=== PATIENT | male | born 1960 | race Caucasian/White ===

== ENCOUNTER 2021-09-30 17:03 | Inpatient (IN) | payer OTHER, MEDICAID ==
[~2021-09-30] VITALS: Ht 175.3 cm; Wt 62.6 kg
--- NOTE | 2021-09-30 17:05 | NUR ---
Patient to ER bed 06 to gown for evaluation. Side rails up.
[2021-09-30 17:06] VITALS: BP_SYST 117
--- NOTE | 2021-09-30 17:06 | NUR ---
Pt CASSIAA from home, family stated that the pt has had general weakness for the past couple of days. PT is A&O x 3, non-ambulatory, and incontinent. Pt has a reported history of parkinsons, dementia, and IBS. Pt is connected to the compliance monitor and safety precautions are in place.
--- NOTE | 2021-09-30 17:14 | NUR ---
Dr. Causey is at bedside with patient for evaluation.
--- NOTE | 2021-09-30 17:24 | NUR ---
urine sent to lab for analysis at 17:20.
--- NOTE | 2021-09-30 17:38 | NUR ---
LAB AT THE BEDSIDE FOR BLOOD DRAW
[2021-09-30 18:12] LABS: ANION GAP 3 (5-15); CALCIUM 7.6 mg/dL (8.4-11.0); CHLORIDE 104 mmol/L (98-107); CREATININE 0.92 mg/dL (0.55-1.30); GLUCOSE 85 mg/dL (70-99); POTASSIUM 4.6 mmol/L (3.5-5.1); SODIUM SERUM 133 mmol/L (136-145); UREA NITROGEN, BLOOD 19 mg/dL (8-21)
[2021-09-30 18:13] LABS: BASOPHILS % (AUTO) 0.6 % (0.0-2.0); EOSINOPHILS # (AUTO) 0.2 K/uL (0.0-0.4); EOSINOPHILS % (AUTO) 3.5 % (0.0-4.0); HEMATOCRIT 35.3 % (36-54); HEMOGLOBIN 12.3 g/dL (14.0-18.0); LYMPHOCYTES # (AUTO) 1.2 K/uL (1.0-5.5); MEAN CORPUSCULAR HEMOGLOBIN 32 pg (27-31); MEAN CORPUSCULAR HGB CONC 35 % (32-36); MEAN CORPUSCULAR VOLUME 90 fL (79.0-98.0); MONOCYTES # (AUTO) 0.4 K/uL (0.0-1.0); MONOCYTES % (AUTO) 9.2 % (1.7-9.3); NEUTROPHILS # (AUTO) 2.8 K/uL (1.8-7.7); NEUTROPHILS % (AUTO) 60.7 % (40.0-70.0); PLATELET COUNT (AUTO) 149 K/uL (130-430); RED BLOOD CELL COUNT(AUTO) 3.92 MIL/uL (4.2-6.2); WHITE BLOOD COUNT (AUTO) 4.6 K/uL (4.8-10.8)
[2021-09-30 18:20] LABS: ALANINE AMINOTRANSFERASE 10 U/L (12-78); ALBUMIN 3.5 g/dL (3.4-4.8); ASPARTATE AMINOTRANSFERASE 14 U/L (10-37); PHOSPHORUS 4.1 mg/dL (2.7-4.5); TOTAL BILIRUBIN 0.4 mg/dL (0.0-1.0)
[2021-09-30 18:25] LABS: GFR AFRICAN AMERICAN 107 mL/min (>90)
--- NOTE | 2021-09-30 19:22 | NUR ---
Report given to Amanda RODRIGUEZ to assume care.
--- NOTE | 2021-09-30 19:25 | NUR ---
RECIEVED REPORT FROM [facility] FOR CONTINUATION OF CARE, PT IN BED HIGH TELLEZ'S POSITION. NO ACUTE DITRESS. PT CONCERNED ABOUT HAVING URINARY CATHETER INSERTED. REASSURED PT THAT HE MAY NOT REQUIRE CATHETER INSERTION. PENDING CT SCAN. WILL MONITOR NEEDED
[2021-09-30] MEDS ORDERED: LORazepam 2 MG/ML VIAL IVP ONE (20:00)
--- NOTE | 2021-09-30 20:06 | NUR ---
PT PENDING ADMISSION, REDNESS WITH CIRCULAR OPEN SKIN NOTED ON SACRAL AREA. PT PLACED IN LOW FOWLERS POSITION WITH PILLOW FOR OFF LOADING.
[2021-09-30 20:20] LABS: BILIRUBIN,URINE NEGATIVE (NEGATIVE); BLOOD, URINE NEGATIVE (NEGATIVE); CLARITY/URINE CLEAR (CLEAR); COLOR,URINE YELLOW (YELLOW); GLUCOSE,URINE NEGATIVE (NEGATIVE); KETONES,URINE TRACE (NEGATIVE); LEUKOCYTE ESTERASE ,URINE TRACE (NEGATIVE); NITRITE, URINE NEGATIVE (NEGATIVE); PROTEIN URINE NEGATIVE (NEGATIVE); UROBILINOGEN,URINE 0.2 (0.2-1.0)
[2021-09-30 20:30] LABS: BACTERIA,URINE FEW /HPF (None Seen); RBC,URINE 0-3 /HPF (0-3); URIC ACID CRYSTALS,URINE 0-10 /HPF (None Seen)
--- NOTE | 2021-09-30 21:07 | NUR ---
Admit bed requested Patient will be admitted to care of . Admitted to MED SURG unit. Diagnosis DEMENTIA EXACERBATION Inpatient (Yes or No) YES Observation (Yes or No) NO Orientation concerns or request close to nursing station (Yes or No) YES Covid Status NEGATIVE On vent or bipap NO Isolation requirements NO Needs a sitter NO From Home (Yes or if No enter name of facility) YES Requires Dialysis (Yes or No) NO Med Rec Completed (Yes of No) PENDING
[2021-09-30] MEDS ORDERED: cefTRIAXone 1 GM IVPB PREMIX 50 ML IV ONE (21:15)
[2021-09-30] MEDS ORDERED: ACETAMINOPHEN 325 MG TABLET PO PRN (21:30)
[2021-09-30] MEDS ORDERED: ONDANSETRON HCL 4 MG/2 ML VIAL IVP PRN (21:30)
[2021-09-30] MEDS ORDERED: DOCUSATE SODIUM 100 MG CAPSULE PO PRN (21:30)
[2021-09-30] MEDS ORDERED: POTASSIUM CHLORIDE 20 MEQ TAB.PRT.SR PO PRN (21:30)
[2021-09-30] MEDS ORDERED: MAGNESIUM SULFATE 50 ML IV PRN (21:30)
[2021-09-30] MEDS ORDERED: MUPIROCIN 2% TOPICAL OINTMENT 22 GM NS PRN (21:30)
[2021-09-30] MEDS ORDERED: ZOLPIDEM TARTRATE 5 MG TABLET PO PRN (21:30)
[2021-09-30] MEDS ORDERED: LORazepam 2 MG/ML VIAL IVP PRN (21:30)
[2021-09-30] MEDS ORDERED: MORPHINE 2 MG/ML INJ. SYRINGE IVP PRN ×2 (21:30)
--- NOTE | 2021-09-30 22:00 | NUR ---
PT IN BED RESTING, LIGHTS OFF. RESPONSIVE TO VERBAL STIMULI. PENDING ADMISSION, WILL MONITOR NEEDED
--- NOTE | 2021-09-30 22:00 | NUR ---
After hour pharmacist call for medication clarification and recommendation to change the Heparin 5000units SQ q12 to Heparin 5000units to q8hrs or Lovenox 40mg daily.Spoke to Dr Rodriguez(admitting MD) and let him know pharmacist recommendation.Per Dr Rodriguez not to change his order.Daylin([facility] pharmacist) notified .
--- NOTE | 2021-09-30 22:23 | NUR ---
REPORT GIVEN TP JENNIFER FREEMAN FOR ADMISSION TO [facility]. PT RANSPORTED ACCOMPANIED BY RN AND TECH. ALL QUESTIONS ANSWERED.
[2021-09-30 23:00] VITALS: BP_SYST 149
--- NOTE | 2021-09-30 23:00 | NUR ---
ADMISSION NOTE Received patient from ER via [place], received report from PROCEDURE ANALYST. Patient admitted with diagnosis of DEMENTIA EXACCERBATION. Patient oriented to hospital routine, call light, toileting and safety-patient verbalized understanding.
[2021-10-01] MEDS: NACL 0.9% 1,000 ML IV SCH ×2 (00:31→17:02)
--- NOTE | 2021-10-01 07:16 | NUR ---
CLOSING NOTES PATIENT RESTING BED, CHANGED ROOM TO 132, ALL BELONGINGS WITH PATIENT. NO DISTRESS NOTED. PATIENT DEMONSTRATES PROPER USAGE OF CALL LIGHT. CALL LIGHT WITHIN REACH, BED ALARM ON, BED AT LOWEST POSITION. FALL, RESPIRATORY, ASPIRATION, AND SAFETY PRECAUTIONS IN PLACE THROUGHOUT SHIFT. ALL NEEDS MET THROUGHOUT SHIFT. WILL ENDORSE CARE TO ONCOMING SHIFT.
[2021-10-01 07:28] LABS: BASOPHILS % (AUTO) 0.6 % (0.0-2.0); EOSINOPHILS # (AUTO) 0.1 K/uL (0.0-0.4); HEMATOCRIT 36.1 % (36-54); HEMOGLOBIN 12.4 g/dL (14.0-18.0); LYMPHOCYTES % (AUTO) 25.1 % (20.5-51.5); MEAN CORPUSCULAR HEMOGLOBIN 31 pg (27-31); MEAN CORPUSCULAR HGB CONC 34 % (32-36); MEAN CORPUSCULAR VOLUME 90 fL (79.0-98.0); MONOCYTES # (AUTO) 0.3 K/uL (0.0-1.0); MONOCYTES % (AUTO) 8.3 % (1.7-9.3); NEUTROPHILS # (AUTO) 2.6 K/uL (1.8-7.7); PLATELET COUNT (AUTO) 152 K/uL (130-430); RED BLOOD CELL COUNT(AUTO) 3.99 MIL/uL (4.2-6.2); RED CELL DISTRIBUTION WIDTH 14.2 % (9.0-15.0); WHITE BLOOD COUNT (AUTO) 4.2 K/uL (4.8-10.8)
[2021-10-01 08:00] VITALS: BP_SYST 144
[2021-10-01 08:00] LABS: CREATININE 0.74 mg/dL (0.55-1.30); POTASSIUM 4.1 mmol/L (3.5-5.1)
[2021-10-01] MEDS ORDERED: BISACODYL 5 MG TABLET.DR (DULCOLAX) PO ONE (08:15)
[2021-10-01] MEDS ORDERED: cefTRIAXone 1 GM IVPB PREMIX 50 ML IV SCH (09:00)
[2021-10-01] MEDS: PANTOPRAZOLE SODIUM 40 MG TAB PO SCH (09:23)
[2021-10-01] MEDS: HEPARIN SODIUM,PORCINE 5,000 UNITS/ML VIAL SUBCUT SCH ×2 (09:27→20:12)
[2021-10-01 12:00] VITALS: BP_SYST 147
[2021-10-01 16:00] VITALS: BP_SYST 147
--- NOTE | 2021-10-01 16:03 | NUR ---
ST EVALUATION COMPLETED. ST TX NOT INDICATED AT THIS TIME. RECOMMEND PO DIET [facility] SOFT WITH THIN LIQUIDS. PT HAS STRONG FOOD PREFERENCES AND MAY REQUEST PREFERRED FOOD CHOICES IF THEY ARE AVAILABLE. 1:1 ASSISTANCE FEEDING AND ASPIRATION PRECAUTIONS.
[2021-10-01 19:30] VITALS: BP_SYST 144
--- NOTE | 2021-10-01 19:30 | NUR ---
PM ASSESSMENT; -Pt is a/ox4, resting in bed. Pt has slurred speech. Generalized weakness noted. Pt denies any chest pain,pain,sob,or any acute distress. IV site patent, no s/s any infiltration noted. IVF infusing well. Bedbound. Turned & repositioned and q 2hrs prn. All safety measures in place, side rails x3, bed alarmed, placed near Nurses' station. Call light w/in reach. Cont to monitor pt.
[2021-10-01] MEDS: cefTRIAXone 1 GM IVPB PREMIX 50 ML IV SCH (20:10)
--- NOTE | 2021-10-01 20:11 | NUR ---
NOTES; COLACE GIVEN PER CONSTIPATION -Pt is c/o of constipation, gave colace po. pt was able to take pill via mouth w/o any difficulty. Cont to monitor pt.
--- NOTE | 2021-10-01 22:05 | NUR ---
NOTES; INCONT OF SMALL BOWEL MOVT -Pt had a small bowel movt after Colace po given. Provided perineal care and now pt is cleaned and dry. Pt denied any chest pain,pain,sob,or any acute distress. Provided warm blankets b/c pt stated that he is cold. Bed alarmed, All safety measures in place. Side rails x3,call light w/in reach. Cont to monitor pt. Addendum: 10/01/21 at 2111 by César web content executive ADDITIONAL NOTES- PT WAS INCONT OF SMALL PASTY YELLOW BOWEL MOVT
[2021-10-02 00:05] VITALS: BP_SYST 137
--- NOTE | 2021-10-02 00:05 | NUR ---
ROUNDS; -Pt is asleep. NO s/s any chest pain,pain,sob,or any acute distress noted. IVF infusing well, no s/s any infiltration noted. Bed alarmed, All safety measures in place. Side rails x3,call light w/in reach. Cont to monitor
--- NOTE | 2021-10-02 02:00 | NUR ---
ROUNDS; -Pt is asleep. NO s/s any chest pain,pain,sob,or any acute distress noted. Pt's condition stable. IVF infusing well, no s/s any infiltration noted. Bed alarmed, All safety measures in place. Side rails x3,call light w/in reach. Cont to monitor
[2021-10-02] MEDS: NACL 0.9% 1,000 ML IV SCH ×3 (05:24→23:30)
--- NOTE | 2021-10-02 06:17 | NUR ---
ROUNDS; PROVIDED URINAL UPON PT'S REQUEST. -Pt was incontinent of urinal,gown, and sheet were wet, changed linen, provided perineal care,now pt is cleaned and dry. Also, changed new drsg of buttocks, cleaned w/ NS, barrier cream applied and Optifoam drsg applied. IVF infusing well, no s/s any infiltration noted. Bed alarmed, All safety measures in place. Side rails x3,call light w/in reach. Cont to monitor
--- NOTE | 2021-10-02 06:35 | NUR ---
CLOSING NOTES; -Pt is resting in bed. Pt has slurred speech. IV site patent, no s/s any infiltration noted. IVF infusing well. All safety measures in place, side rails x3, bed alarmed, placed near Nurses' station. Call light w/in reach. Will endorse to next nurse to cont care.
--- NOTE | 2021-10-02 06:47 | NUR ---
INCONT OF BOWEL MOVT -pt was incont of large loose green bowel movt, provided perineal care and applied new Optifoam drsg on buttock b/c old drsg soaked w/ stool. Now, pt is cleaned and dry.
[2021-10-02 07:00] LABS: BASOPHILS % (AUTO) 0.6 % (0.0-2.0); EOSINOPHILS # (AUTO) 0.2 K/uL (0.0-0.4); EOSINOPHILS % (AUTO) 3.7 % (0.0-4.0); HEMATOCRIT 39.4 % (36-54); HEMOGLOBIN 13.5 g/dL (14.0-18.0); LYMPHOCYTES # (AUTO) 1.1 K/uL (1.0-5.5); MEAN CORPUSCULAR HEMOGLOBIN 31 pg (27-31); MEAN CORPUSCULAR HGB CONC 34 % (32-36); MEAN CORPUSCULAR VOLUME 91 fL (79.0-98.0); MONOCYTES # (AUTO) 0.4 K/uL (0.0-1.0); MONOCYTES % (AUTO) 9.3 % (1.7-9.3); NEUTROPHILS # (AUTO) 2.8 K/uL (1.8-7.7); NEUTROPHILS % (AUTO) 61.4 % (40.0-70.0); PLATELET COUNT (AUTO) 150 K/uL (130-430); RED BLOOD CELL COUNT(AUTO) 4.35 MIL/uL (4.2-6.2); WHITE BLOOD COUNT (AUTO) 4.6 K/uL (4.8-10.8)
[2021-10-02 07:51] LABS: CALCIUM 8.1 mg/dL (8.4-11.0); CREATININE 0.9 mg/dL (0.55-1.30); POTASSIUM 3.9 mmol/L (3.5-5.1)
--- NOTE | 2021-10-02 08:00 | NUR ---
ASSESSMENT COMPLETED PT NOTED TO BE VERY ANXIOUS AND SOME AGITATION PT YELLING AND BECOMING INCRESINGLY AGITATED PLAN OF CARE REVIEWED AND PT OFFERED ATIVAN IV FOR ANXIETY WILL ADMINISTER PRESCRIBED SITTER IN PLACE AT BEDSIDE CALL LIGHT IN REACH ASSISSTED AIDE WITH REPOSITIONING AND PT MADE AWARE THAT STAFF WILL TURN AND REPOSITION Q 2 HOURS WILL CONTINUE TO MONITOR AND ASSESS
[2021-10-02 08:09] VITALS: BP_SYST 153
[2021-10-02] MEDS: PANTOPRAZOLE SODIUM 40 MG TAB PO SCH (09:04)
[2021-10-02] MEDS: HEPARIN SODIUM,PORCINE 5,000 UNITS/ML VIAL SUBCUT SCH ×2 (09:08→21:00)
--- NOTE | 2021-10-02 10:00 | NUR ---
ATIVAN GIVEN AND EFFECTIVE PT CALM AT THIS TIME ANSWERS QUESTIONS APPROPRIATELY ALL NEEDS ANTICIPATED WILL CONTINUE TO MONITOR AND ASSESS
[2021-10-02 11:25] VITALS: BP_SYST 149
--- NOTE | 2021-10-02 14:15 | NUR ---
Dietitian Recommendations * CCHO, mechanical soft diet * Glucertyler TID (ONS yields 660 kcal/day, 30 gm protein/day) * Encourage increase PO intakes LP, RD Please refer to Nutrition Assessment for details. Addendum: 10/02/21 at [address] Amended: Links added.
[2021-10-02 16:25] VITALS: BP_SYST 158
--- NOTE | 2021-10-02 16:49 | NUR ---
PT AWAKE AT THIS TIME WITH LARGE BM PT CLEANED [facility] CARE RENDERED BARRIER CREAM APPLIED TO BUTTOCKS PT TURNED AND REPOSITIONED CALL LIGHT IN REACH NO AGITIATION OR ANXIETY NOTED AT THIS TIME
--- NOTE | 2021-10-02 19:40 | NUR ---
OPENING NOTE PT SITTING UP IN BED CONFUSED AND ASKING FOR THE NURSE AND FOR MORE BLANKETS. NO APPARENT DISTRESS NOTED AT THIS TIME. FALL AND SAFETY PRECAUTIONS IN PLACE. CALL LIGHT IS WITHIN REACH. IV FLUIDS RUNNING ORDERED
[2021-10-02 20:00] VITALS: BP_SYST 138
[2021-10-02] MEDS: cefTRIAXone 1 GM IVPB PREMIX 50 ML IV SCH (21:29)
[2021-10-03 01:12] VITALS: BP_SYST 140
[2021-10-03] MEDS ORDERED: [UNRECOGNIZED DRUG - OTHER] IV (06:48)
--- NOTE | 2021-10-03 06:52 | NUR ---
PT TO BE D/C SPOKE WITH DR MCKENNA DIAZ, IS ORDERING FOR PT TO BE DC'D TO [facility]. STATED THAT PREVIOUS ARRANGEMENTS HAVE BEEN SET UP AT [facility] FOR PT TRANSPORTATION. TRANSPORTATION WILL NEED TO BE SET UP. WILL ENDORSE TO DAY SHIFT
[2021-10-03 07:22] LABS: BASOPHILS % (AUTO) 0.4 % (0.0-2.0); EOSINOPHILS # (AUTO) 0.2 K/uL (0.0-0.4); EOSINOPHILS % (AUTO) 3.7 % (0.0-4.0); HEMOGLOBIN 13.6 g/dL (14.0-18.0); LYMPHOCYTES % (AUTO) 24.7 % (20.5-51.5); MEAN CORPUSCULAR HEMOGLOBIN 31 pg (27-31); MEAN CORPUSCULAR HGB CONC 34 % (32-36); MEAN CORPUSCULAR VOLUME 91 fL (79.0-98.0); MONOCYTES # (AUTO) 0.4 K/uL (0.0-1.0); MONOCYTES % (AUTO) 9.5 % (1.7-9.3); NEUTROPHILS # (AUTO) 2.5 K/uL (1.8-7.7); NEUTROPHILS % (AUTO) 61.7 % (40.0-70.0); PLATELET COUNT (AUTO) 155 K/uL (130-430); RED BLOOD CELL COUNT(AUTO) 4.41 MIL/uL (4.2-6.2); RED CELL DISTRIBUTION WIDTH 13.9 % (9.0-15.0); WHITE BLOOD COUNT (AUTO) 4.1 K/uL (4.8-10.8)
--- NOTE | 2021-10-03 07:27 | NUR ---
CLOSING NOTE PT IS HIGH SEMI TELLEZ IN BED WITH EYES CLOSED. NO APPARENT DISTRESS NOTED AT THIS TIME. BED IS IN LOWEST POSITION WITH FALL AND SAFETY PRECAUTIONS IN PLACE. CALL LIGHT WITHIN REACH. IV RUNNING ORDERED
[2021-10-03 08:08] LABS: CALCIUM 8.5 mg/dL (8.4-11.0); CREATININE 0.86 mg/dL (0.55-1.30); POTASSIUM 3.7 mmol/L (3.5-5.1)
[2021-10-03] MEDS: PANTOPRAZOLE SODIUM 40 MG TAB PO SCH (10:51)
[2021-10-03] MEDS: HEPARIN SODIUM,PORCINE 5,000 UNITS/ML VIAL SUBCUT SCH ×2 (10:52→20:07)
[2021-10-03 13:05] VITALS: BP_SYST 139
[2021-10-03 13:52] VITALS: BP_SYST 150
--- NOTE | 2021-10-03 15:02 | NUR ---
CM: PT HAS ORDER FOR DISCHARGE TO [facility], FAMILY DOES NOT APPROVE OF FACILITY, STATES PT HAS GONE THERE BEFORE AND DIDN'T LIKE THE TX THERE, REQUESTING FOR BED AT [facility] STATES FAMILY VISITED FACILITY AND PREFR TO SEND THE PT THERE, DR. TRIVEDI NOTIFIED AND AGREES TO SEND THE PT TO [facility] WHEN BED AVAILABLE. Addendum: 10/03/21 at 1511 by Tasia Sandoval RN PT IMFO FAXED TO [facility] FOR REVIEW.
[2021-10-03 16:00] VITALS: BP_SYST 138
[2021-10-03 19:00] VITALS: BP_SYST 135
--- NOTE | 2021-10-03 19:25 | NUR ---
OPENING NOTE PT SITTING UP IN BED, PT IS DROWSY AND SLEEPING AT THIS TIME. NO APPARENT DISTRESS NOTED AT THIS TIME. FALL AND SAFETY PRECAUTIONS IN PLACE. CALL LIGHT IS WITHIN REACH. IV FLUIDS RUNNING ORDERED. OXYGEN IS ON NC 2L
[2021-10-03 20:00] VITALS: BP_SYST 135
--- NOTE | 2021-10-03 20:00 | NUR ---
pt.assessed.pt.presents quiescent affect.pee flacc pain mgx pt.absent facial grimaces/body posturing.pt.assessed for cleanliness pt.repositioned.call light/telephone placed w/in access of the pt.
[2021-10-03] MEDS: cefTRIAXone 1 GM IVPB PREMIX 50 ML IV SCH (20:02)
[2021-10-03] MEDS: NACL 0.9% 1,000 ML IV SCH (20:02)
--- NOTE | 2021-10-03 21:00 | NUR ---
2100p medications administered.rocephin,heparin;sq.per flacc pain mgx pt.absent facial grimaces/body posturing. call light/telephone w/in access of the pt.
--- NOTE | 2021-10-03 22:00 | NUR ---
pt.assessed.pt.presents quiescent affect.per flacc pain mgx pt.absent facial grimaces/body posturing.pt.assessed for cleanliness. pt.repositioned.call light/telephone placed w/in access of the pt.
--- NOTE | 2021-10-04 | NUR ---
pt.assessed.v/s assessed values wnl.per pt.ppot.prsar tegan afctc;almquiescent.somno;nahomy tper flaccpin,magxc pr.,absefacilagormacxres. pt.ased.for cledniess pt.eionedcahgt/telepho palneo win acces of thpt./
[2021-10-04] MEDS: NACL 0.9% 1,000 ML IV SCH (00:30)
[2021-10-04 00:44] VITALS: BP_SYST 148
--- NOTE | 2021-10-04 02:00 | NUR ---
pt.assessed.pt.assessed for cleanliness.pt.repositioned.per flacc pain mgx pt.absent facial grimaces/body posturing. call light/telephone placed w/in access of the pt.
--- NOTE | 2021-10-04 04:00 | NUR ---
pt.assessed.per flacc pain mgx pt.absent facial grimaces/body posturing.pt.repositioned.call light/telephone placed w/in access of the pt.
--- NOTE | 2021-10-04 06:00 | NUR ---
pt.assessed.per flacc pain mgx pt.absent facial grimaces/body posturing.pt.repositioned.call light/telephone placed w/in access of the pt.
[2021-10-04 07:24] LABS: BASOPHILS % (AUTO) 0.4 % (0.0-2.0); EOSINOPHILS # (AUTO) 0.1 K/uL (0.0-0.4); EOSINOPHILS % (AUTO) 2.5 % (0.0-4.0); HEMATOCRIT 40.1 % (36-54); HEMOGLOBIN 13.7 g/dL (14.0-18.0); LYMPHOCYTES % (AUTO) 17.8 % (20.5-51.5); MEAN CORPUSCULAR HEMOGLOBIN 31 pg (27-31); MEAN CORPUSCULAR HGB CONC 34 % (32-36); MEAN CORPUSCULAR VOLUME 89 fL (79.0-98.0); MONOCYTES # (AUTO) 0.5 K/uL (0.0-1.0); MONOCYTES % (AUTO) 8.5 % (1.7-9.3); NEUTROPHILS # (AUTO) 3.8 K/uL (1.8-7.7); NEUTROPHILS % (AUTO) 70.8 % (40.0-70.0); PLATELET COUNT (AUTO) 159 K/uL (130-430); RED BLOOD CELL COUNT(AUTO) 4.49 MIL/uL (4.2-6.2); RED CELL DISTRIBUTION WIDTH 13.9 % (9.0-15.0); WHITE BLOOD COUNT (AUTO) 5.4 K/uL (4.8-10.8)
[2021-10-04 07:44] LABS: CREATININE 0.74 mg/dL (0.55-1.30); POTASSIUM 3.8 mmol/L (3.5-5.1)
[2021-10-04 08:00] VITALS: BP_SYST 139
[2021-10-04] MEDS: PANTOPRAZOLE SODIUM 40 MG TAB PO SCH (09:11)
[2021-10-04] MEDS: HEPARIN SODIUM,PORCINE 5,000 UNITS/ML VIAL SUBCUT SCH (09:18)
[2021-10-04 12:00] VITALS: BP_SYST 138
--- NOTE | 2021-10-04 12:43 | NUR ---
Discharge Planning: MIKELP arranged transport with [facility] [phone] BLS 5:30pm to [place] [phone] Rm 106B. DCP made CM and nurse aware, patient packet taken to nurse station.
[2021-10-04 14:12] VITALS: BP_SYST 138
[2021-10-04 15:08] VITALS: BP_SYST 138
== END 2021-10-04 15:45 | DRG 689 ==
LOC: SED 17:03 → SMU 21:05
PROVIDERS: ADMIT General Practice; ATTEND General Practice
DX: N39.0 Urinary tract infection, site not specified (principal); G93.41 Metabolic encephalopathy; E43 Unspecified severe protein-calorie malnutrition; Z20.822 Contact with and (suspected) exposure to COVID-19; G20 Parkinson's disease; K59.00 Constipation, unspecified; F02.80 Dementia in other diseases classified elsewhere, unspecified severity, without behavioral disturbance, psychotic disturbance, mood disturbance, and anxiety; F41.9 Anxiety disorder, unspecified; Z68.20 Body mass index [BMI] 20.0-20.9, adult
CPT/HCPCS: 36415; 71045; 76376; 80048; 80053; 81000; 83735; 83880; 84100; 84484; 85025; 87086; 92610-GN; 93005; 96374; 96375; 97110-GP; 97163-GP; 97530-GP; 99285; J0696; J1644; J2060; Q9967

== ENCOUNTER 2021-10-22 09:13 | Inpatient (IN) | payer OTHER, MEDICAID ==
[~2021-10-22] VITALS: Ht 175.3 cm; Wt 76.7 kg
[~2021-10-22 09:13] MED LIST: [UNRECOGNIZED DRUG - OTHER] IV
[2021-10-22 09:15] VITALS: BP_SYST 101
--- NOTE | 2021-10-22 09:15 | NUR ---
PT TRIAGED AND ON GURNEY WITH EMT'S AWAITING AVAILABLE BED IN MAIN ED. MD MADE AWARE OF MSE
--- NOTE | 2021-10-22 09:20 | NUR ---
PT GASTON FROM [facility], PER EMS AND STAFF PT WAS SPEAKING CLEARLY EARLIER THIS AM BUT SUDDENLY STOPPED SPEAKING. PT IS ABLE TO FOLLOW COMMAND BUT IS SHAKING. HX DEMENTIA, PARKINSON'S. TACHYCARDIC UPON ARRIVAL 130-140S. OTHER VSS
--- NOTE | 2021-10-22 09:30 | NUR ---
ER DR. JEONG EXAMINING PT
--- NOTE | 2021-10-22 09:50 | NUR ---
# 20 gauge angiocath placed to RFA. Use of asceptic technique. Opsite placed over site. Blood return noted. Blood for lab drawn from site. Flushed with 10 cc of normal saline. No evidence of infiltration noted. Patient tolerated well.
[2021-10-22] MEDS ORDERED: levETIRAcetam 1,000 MG in NS 90 ML IV ONE (10:00)
[2021-10-22] MEDS ORDERED: LORazepam 2 MG/ML VIAL IVP ONE ×2 (10:00→10:15)
[2021-10-22] MEDS ORDERED: NACL 0.9% 1,000 ML IV ONE (10:00)
[2021-10-22 10:08] LABS: BASOPHILS % (AUTO) 0.5 % (0.0-2.0); EOSINOPHILS # (AUTO) 0.1 K/uL (0.0-0.4); EOSINOPHILS % (AUTO) 0.9 % (0.0-4.0); HEMATOCRIT 40.5 % (36-54); HEMOGLOBIN 14.5 g/dL (14.0-18.0); LYMPHOCYTES # (AUTO) 0.8 K/uL (1.0-5.5); LYMPHOCYTES % (AUTO) 11.4 % (20.5-51.5); MEAN CORPUSCULAR HEMOGLOBIN 31 pg (27-31); MEAN CORPUSCULAR HGB CONC 36 % (32-36); MEAN CORPUSCULAR VOLUME 86 fL (79.0-98.0); MONOCYTES # (AUTO) 0.4 K/uL (0.0-1.0); MONOCYTES % (AUTO) 5.9 % (1.7-9.3); NEUTROPHILS # (AUTO) 5.8 K/uL (1.8-7.7); NEUTROPHILS % (AUTO) 81.3 % (40.0-70.0); PLATELET COUNT (AUTO) 196 K/uL (130-430); RED BLOOD CELL COUNT(AUTO) 4.69 MIL/uL (4.2-6.2); WHITE BLOOD COUNT (AUTO) 7.1 K/uL (4.8-10.8)
[2021-10-22] MEDS ORDERED: LORazepam 2 MG/ML VIAL ONE (10:11)
[2021-10-22 10:15] LABS: ANION GAP 21 (5-15); CALCIUM 9.2 mg/dL (8.4-11.0); CHLORIDE 89 mmol/L (98-107); CREATININE 1.14 mg/dL (0.55-1.30); GLUCOSE 102 mg/dL (70-99); POTASSIUM 3.3 mmol/L (3.5-5.1); SODIUM SERUM 126 mmol/L (136-145); UREA NITROGEN, BLOOD 12 mg/dL (8-21)
[2021-10-22 10:19] LABS: INR 1.1 (0.80-1.20); PROTHROMBIN TIME 11.3 SECS (9.5-12.5)
[2021-10-22 10:21] LABS: GFR AFRICAN AMERICAN 84 mL/min (>90)
[2021-10-22 10:28] LABS: ALANINE AMINOTRANSFERASE 5 U/L (12-78); ALBUMIN 4.5 g/dL (3.4-4.8); ASPARTATE AMINOTRANSFERASE 17 U/L (10-37)
[2021-10-22 10:30] LABS: ACETAMINOPHEN < 1 ug/mL (1-30); ALCOHOL, BLOOD < 3 mg/dL (<10)
--- NOTE | 2021-10-22 11:19 | NUR ---
Report received from Lisbeth RODRIGUEZ to assume care of patient
--- NOTE | 2021-10-22 11:19 | NUR ---
Pt now talking, garbled speech noted, but understandable. Now in bed 1, placed on bus driver/monitor, UA pending. Will continue to monitor.
[2021-10-22] MEDS ORDERED: QUET50TA PO (11:30)
[2021-10-22] MEDS ORDERED: ASCO500T20 PO (11:30)
[2021-10-22] MEDS ORDERED: LINA145C PO (11:30)
[2021-10-22] MEDS ORDERED: MIRT-114 PO (11:30)
[2021-10-22] MEDS ORDERED: AMIN30LI2 PO (11:30)
[2021-10-22] MEDS ORDERED: ATEN50TA PO (11:30)
[2021-10-22] MEDS ORDERED: SENN8.6T19 PO (11:30)
[2021-10-22] MEDS ORDERED: DOCU-144 PO (11:30)
[2021-10-22] MEDS ORDERED: CARB1CAP7 PO (11:30)
[2021-10-22] MEDS ORDERED: CLON0.5T4 PO (11:30)
[2021-10-22] MEDS ORDERED: MOM PO (11:30)
[2021-10-22] MEDS ORDERED: SER100 PO (11:30)
[2021-10-22] MEDS ORDERED: ACET325T53 PO (11:30)
[2021-10-22] MEDS ORDERED: AMAN100C19 PO (11:30)
[2021-10-22] MEDS ORDERED: PRO40 PO (11:30)
[2021-10-22] MEDS ORDERED: MULT-1189 PO (11:30)
[2021-10-22] MEDS ORDERED: ZINC220T4 PO (11:30)
[2021-10-22] MEDS ORDERED: TAMS-11 PO (11:30)
[2021-10-22] MEDS ORDERED: OXCA150T5 PO (11:30)
--- NOTE | 2021-10-22 11:30 | NUR ---
COVID/MRSA swabs collected at bedside and sent to lab
--- NOTE | 2021-10-22 11:30 | NUR ---
Medication reconciliation completed with information provided by list from [facility]. Any prior medication reconciliation on file was reviewed and corrected.
--- NOTE | 2021-10-22 11:42 | NUR ---
CXR being done at bedside
[2021-10-22 12:11] LABS: BARBITURATE, URINE NEGATIVE (NEG <=200); BENZODIAZEPINE, URINE NEGATIVE (NEG <=150); CANNABINOID, URINE NEGATIVE (NEG <=50); COCAINE, URINE NEGATIVE (NEG <=150); METHAMPHETAMINES SCREEN,URINE NEGATIVE (NEG <=500); OPIATE, URINE NEGATIVE (NEG <=100); PHENCYCLIDINE SCREEN,URINE NEGATIVE (NEG <=25); UR TRICYCLIC ANTIDEPRESSANTS POSITIVE (NEG <=300); URINE AMPHETAMINE NEGATIVE (NEG <=500); URINE METHADONE NEGATIVE (NEG <=200); URINE OXYCODONE SCREEN NEGATIVE (NEG <=100); URINE PROPOXYPHENE SCREEN NEGATIVE (NEG <=300)
--- NOTE | 2021-10-22 12:14 | NUR ---
Admit bed requested Patient will be admitted to care of Dr. Eli. Admitted to tele unit. Diagnosis SZ Inpatient (Yes or No) Y Observation (Yes or No) N Orientation concerns or request close to nursing station (Yes or No) N Covid Status Pend On vent or bipap N Isolation requirements N Needs a sitter N From Home (Yes or if No enter name of facility) [facility] Requires Dialysis (Yes or No) N Med Rec Completed (Yes of No) Y
[2021-10-22] MEDS ORDERED: KCL 20 mEq in 100 mL (PREMIX) 100 ML IV ONE (12:15)
[2021-10-22] MEDS ORDERED: HALOPERIDOL LACTATE 5 MG/ML VIAL IVP ONE (13:15)
[2021-10-22] MEDS ORDERED: HALOPERIDOL LACTATE 5 MG/ML VIAL IM ONE (13:15)
--- NOTE | 2021-10-22 13:15 | NUR ---
RN attempted to give Haldol for combative behavior when touched. Pt became agitated, pulled IV out, started screaming, and moving uncontrollably. Pt became combative with staff. Removed environmental monitoring specialist leads. Pt screams out wildly whenever touched.
--- NOTE | 2021-10-22 13:30 | NUR ---
Pt transported to 130B via [facility] with RN. Bedside report given. IV potassium and IVF endorsed.
[2021-10-22] MEDS ORDERED: NALOXONE HCL 0.4 MG/ML AMP (NARCAN) IVP PRN ×2 (13:45)
[2021-10-22] MEDS ORDERED: LORazepam 2 MG/ML VIAL IVP PRN (13:45)
[2021-10-22] MEDS ORDERED: MAGNESIUM SULFATE 50 ML IV PRN (13:45)
[2021-10-22] MEDS ORDERED: MORPHINE 2 MG/ML INJ. SYRINGE IVP PRN ×2 (13:45)
[2021-10-22] MEDS ORDERED: ACETAMINOPHEN 325 MG TABLET PO PRN (13:45)
[2021-10-22] MEDS ORDERED: ONDANSETRON HCL 4 MG/2 ML VIAL IVP PRN (13:45)
[2021-10-22] MEDS ORDERED: POTASSIUM CHLORIDE 20 MEQ TAB.PRT.SR PO PRN (13:45)
[2021-10-22] MEDS ORDERED: ZOLPIDEM TARTRATE 5 MG TABLET PO PRN (13:45)
[2021-10-22] MEDS ORDERED: DOCUSATE SODIUM 100 MG CAPSULE PO PRN (13:45)
--- NOTE | 2021-10-22 13:49 | NUR ---
CONSULTATION PAGED/CALLED Reason for Consultation: [] HYPONATREMIA Person Who was Notified: [] RHIANNON Consulting Physician: [] DR VICENTE Post Commander Specialty: [] NEPHROLOGY Ordering Physician: [] DR TRIVEDI
--- NOTE | 2021-10-22 13:52 | NUR ---
CONSULTATION PAGED/CALLED Reason for Consultation: [] SEIZURES Person Who was Notified: [] DR Kristin JASMINE Consulting Physician: [] DR Kristin JASMINE Brush Machine Setter Specialty: [] NEURO Ordering Physician: [] DR TRIVEDI
[2021-10-22 13:58] VITALS: BP_SYST 100
[2021-10-22 14:00] VITALS: BP_SYST 100
[2021-10-22 14:00] LABS: BILIRUBIN,URINE NEGATIVE (NEGATIVE); BLOOD, URINE NEGATIVE (NEGATIVE); CLARITY/URINE CLEAR (CLEAR); COLOR,URINE YELLOW (YELLOW); GLUCOSE,URINE NEGATIVE (NEGATIVE); KETONES,URINE 1+ (NEGATIVE); LEUKOCYTE ESTERASE ,URINE NEGATIVE (NEGATIVE); NITRITE, URINE NEGATIVE (NEGATIVE); PH,URINE 6.5 (5.0-8.0); PROTEIN URINE NEGATIVE (NEGATIVE); UROBILINOGEN,URINE 0.2 (0.2-1.0)
--- NOTE | 2021-10-22 14:15 | NUR ---
Admission Assumed care of pt. Placed in room 102A. Pt drowsy, arousable to tactile stimuli. Pt in no signs of distress or acute pain, on room air. IV 22G placed on RFA and secured, no infiltration noted. Situated pt to room and call light. No belongings present with patient.
[2021-10-22] MEDS: D5NS 1,000 ML IV SCH (14:45)
--- NOTE | 2021-10-22 16:00 | NUR ---
Pt drowsy, arousable, equal chest rise and fall. No acute distress noted.
[2021-10-22 16:45] VITALS: BP_SYST 118
[2021-10-22] MEDS ORDERED: CARBIDOPA PO SCH (17:00)
[2021-10-22] MEDS ORDERED: LEVODOPA PO SCH (17:00)
--- NOTE | 2021-10-22 17:18 | NUR ---
EEG ORDERED BY DR Kristin JASMINE WILL BE DONE TOMORROW AT 0900 PER LEENA FROM [facility].
--- NOTE | 2021-10-22 19:22 | NUR ---
Endorsed plan of care to RN.
[2021-10-22 20:00] VITALS: BP_SYST 147
[2021-10-22] MEDS: OXcarbazepine 150 MG TABLET(TRILEPTAL) PO SCH (20:46)
[2021-10-22] MEDS: TAMSULOSIN HCL 0.4 MG CAP PO SCH (20:46)
[2021-10-22] MEDS: MIRTAZAPINE 15 MG TABLET PO SCH (20:46)
[2021-10-22] MEDS: QUEtiapine FUMARATE 100 MG TABLET PO SCH (20:47)
[2021-10-22] MEDS: SENNOSIDES 8.6 MG TABLET PO SCH (20:47)
[2021-10-22] MEDS: QUEtiapine FUMARATE 25 MG TABLET PO SCH (20:48)
[2021-10-23 01:03] VITALS: BP_SYST 157
[2021-10-23 04:00] VITALS: BP_SYST 155
[2021-10-23] MEDS: D5NS 1,000 ML IV SCH ×2 (05:47→13:15)
--- NOTE | 2021-10-23 06:28 | NUR ---
PATIENT ASLEEP ON BED. STABLE. NO DISTRESS OR DISCOMFORT NOTED. CALM AND QUIET. KEPT WARM AND COMFORTABLE. REPOSITIONED TO SIDES PER PROTOCOL. AFEBRILE. VS STABLE. AAOX2. IVF INFUSING WELL TO RIGHT PIV, NO INFILTRATION NOTED. VOIDING WELL. ALL NEEDS ATTENDED. CALL LIGHTS PLACED WITHIN REACH. MONITORED CLOSELY.
[2021-10-23 06:36] LABS: BASOPHILS % (AUTO) 0.4 % (0.0-2.0); EOSINOPHILS # (AUTO) 0.1 K/uL (0.0-0.4); EOSINOPHILS % (AUTO) 3.4 % (0.0-4.0); HEMATOCRIT 36.1 % (36-54); LYMPHOCYTES # (AUTO) 0.8 K/uL (1.0-5.5); LYMPHOCYTES % (AUTO) 19.5 % (20.5-51.5); MEAN CORPUSCULAR HEMOGLOBIN 31 pg (27-31); MEAN CORPUSCULAR HGB CONC 36 % (32-36); MEAN CORPUSCULAR VOLUME 87 fL (79.0-98.0); MONOCYTES # (AUTO) 0.4 K/uL (0.0-1.0); MONOCYTES % (AUTO) 8.8 % (1.7-9.3); NEUTROPHILS # (AUTO) 2.8 K/uL (1.8-7.7); NEUTROPHILS % (AUTO) 67.9 % (40.0-70.0); PLATELET COUNT (AUTO) 177 K/uL (130-430); RED BLOOD CELL COUNT(AUTO) 4.14 MIL/uL (4.2-6.2); RED CELL DISTRIBUTION WIDTH 14.4 % (9.0-15.0); WHITE BLOOD COUNT (AUTO) 4.1 K/uL (4.8-10.8)
[2021-10-23 07:00] LABS: CALCIUM 8.1 mg/dL (8.4-11.0); CREATININE 0.65 mg/dL (0.55-1.30); POTASSIUM 3.3 mmol/L (3.5-5.1)
[2021-10-23 08:00] VITALS: BP_SYST 137
--- NOTE | 2021-10-23 08:00 | NUR ---
Initial Notes Patient is lethargic and confused. Aroused to name and tapping on shoulder. Patient SPo2 is 99% on RA. Breathing is even and non labored. NO SOB or respiratory distress noted. Vital signs within range. Patient is in a comfortable position. HOB elevated. Safety precautions in place. Seizure precautions in place. Call light within reach.
[2021-10-23] MEDS: QUEtiapine FUMARATE 25 MG TABLET PO SCH ×2 (09:00→20:38)
[2021-10-23] MEDS: ATENOLOL 50 MG TABLET (TENORMIN) PO SCH (09:00)
[2021-10-23] MEDS ORDERED: NON-FORMULARY MEDICATION (Linaclotide (Linzess) 145 MCG) PO SCH (09:00)
--- NOTE | 2021-10-23 10:00 | NUR ---
Notes Patient is resting, eyes closed. EEG being done at beside. No distress or pain noted.
--- NOTE | 2021-10-23 10:30 | NUR ---
Notes Called and spoke to Dr. Starr. Potassium low, per MD aware. Orders received. .
[2021-10-23 11:12] VITALS: BP_SYST 137
[2021-10-23] MEDS ORDERED: POTASSIUM CHLORIDE 40 MEQ in NS 250 ML IV ONE (12:00)
--- NOTE | 2021-10-23 14:18 | NUR ---
IV INSERTION OLD IV INFILTRATED PER PRIMARY NURSE. NEW IV LINE INSERTED LEFT HAND #22.WITH GOOD BLOOD RETURN .FLUSHED WELL. NO S/S S OF INFILTRATION NOTED. IVF INFUSING WELL. . NO S/S OF INFILTRATION NOTED.
--- NOTE | 2021-10-23 16:00 | NUR ---
Notes Patient has been cleaned and repositioned. No complaints of pain. NO SOB noted. Call light within reach and seizure precautions in place.
[2021-10-23 16:24] VITALS: BP_SYST 131
--- NOTE | 2021-10-23 18:30 | NUR ---
closing notes Patient in bed, HOB elevated. Dinner is on table. No complaints of pain or distress. Patient is more aroused. Safety precautions in place and call light within reach.
[2021-10-23] MEDS: OXcarbazepine 150 MG TABLET(TRILEPTAL) PO SCH (20:38)
[2021-10-23] MEDS: TAMSULOSIN HCL 0.4 MG CAP PO SCH (20:38)
[2021-10-23] MEDS: SENNOSIDES 8.6 MG TABLET PO SCH (20:38)
[2021-10-23] MEDS: MIRTAZAPINE 15 MG TABLET PO SCH (20:38)
[2021-10-23] MEDS: QUEtiapine FUMARATE 100 MG TABLET PO SCH (20:39)
[2021-10-24 00:29] VITALS: BP_SYST 128
[2021-10-24] MEDS: D5NS 1,000 ML IV SCH ×2 (03:39→14:53)
[2021-10-24 04:00] VITALS: BP_SYST 122
--- NOTE | 2021-10-24 05:50 | NUR ---
PATIENT IS ASLEEP ON BED. AFEBRILE. VS STABLE. ALL RAILS KEPT PADDED. NO SEIZURE EPISODES NOTED. PATIENT WOKE UP LAST NIGHT AND SAID HE IS HUNGRY. FED WITH 2 PUDDINGS AND 1 APPLE SAUCE, ALSO DRANK 1 APPLE JUICE. PATIENT TOLERATES PUREED FOODS WELL. NO ASPIRATION NOTED. SLEPT THE WHOLE NIGHT AFTER THAT. PIV TO LEFT FOREARM INTACT AND PATENT. D5NS AT 75 ML/HR RUNNING AND PATIENT TOLERATED IT WELL. VOIDING AND STOOLING WELL. ALL NEEDS ATTENDED. CALL LIGHT PLACED WITHIN REACH. KEPT OBSERVED CLOSELY.
[2021-10-24 06:57] LABS: BASOPHILS % (AUTO) 0.6 % (0.0-2.0); EOSINOPHILS # (AUTO) 0.2 K/uL (0.0-0.4); EOSINOPHILS % (AUTO) 4.6 % (0.0-4.0); HEMATOCRIT 36.9 % (36-54); LYMPHOCYTES % (AUTO) 20.3 % (20.5-51.5); MEAN CORPUSCULAR HEMOGLOBIN 31 pg (27-31); MEAN CORPUSCULAR HGB CONC 35 % (32-36); MEAN CORPUSCULAR VOLUME 89 fL (79.0-98.0); MONOCYTES # (AUTO) 0.5 K/uL (0.0-1.0); MONOCYTES % (AUTO) 10.5 % (1.7-9.3); NEUTROPHILS # (AUTO) 3.1 K/uL (1.8-7.7); PLATELET COUNT (AUTO) 170 K/uL (130-430); RED BLOOD CELL COUNT(AUTO) 4.16 MIL/uL (4.2-6.2); RED CELL DISTRIBUTION WIDTH 14.4 % (9.0-15.0); WHITE BLOOD COUNT (AUTO) 4.9 K/uL (4.8-10.8)
[2021-10-24 07:52] LABS: CALCIUM 8.3 mg/dL (8.4-11.0); CREATININE 0.7 mg/dL (0.55-1.30); POTASSIUM 3.7 mmol/L (3.5-5.1)
[2021-10-24 08:00] VITALS: BP_SYST 118
--- NOTE | 2021-10-24 08:00 | NUR ---
Initial Notes Patient in bed, eyes closed. Arouse to name and tapping on shoulder. Patient is confused and lethargic. Vital signs obtained, Spo2 @ 100% on room air. No s/s of distress or SOB. Afebrile. No pain noted, no facial grimace noted. Patient in high fowlers position, ready for breakfast. Safety precautions in place. Seizure precautions in place. Bed alarm on. Call light within reach.
[2021-10-24] MEDS: QUEtiapine FUMARATE 25 MG TABLET PO SCH ×2 (09:34→20:53)
[2021-10-24] MEDS: ATENOLOL 50 MG TABLET (TENORMIN) PO SCH (09:34)
--- NOTE | 2021-10-24 12:00 | NUR ---
Notes Patient has been cleaned and repositioned. No SOB noted. No distress. Patient denies any pain. Safety precautions in place, call light within reach.
[2021-10-24 12:38] VITALS: BP_SYST 126
--- NOTE | 2021-10-24 16:00 | NUR ---
Notes Patient is resting, eyes closed. No s/s of distress noted. No s/s of pain, no facial grimace. Patient spo2 @ 100% on room air. Safety precautions in place, seizure precautions in place and call light within reach.
[2021-10-24 16:08] VITALS: BP_SYST 121
[2021-10-24] MEDS: CARBIDOPA/LEVODOPA 25/100 MG TABLET PO SCH ×2 (16:52→20:52)
--- NOTE | 2021-10-24 18:29 | NUR ---
Closing Notes Patient in bed, HOB elevated. Patient on room air. No complaints of pain. No distress noted. Safety precautions in place, seizure precautions in place, and call light within reach.
[2021-10-24 20:00] VITALS: BP_SYST 142
[2021-10-24] MEDS: QUEtiapine FUMARATE 100 MG TABLET PO SCH (20:53)
[2021-10-24] MEDS: OXcarbazepine 150 MG TABLET(TRILEPTAL) PO SCH (20:53)
[2021-10-24] MEDS: MIRTAZAPINE 15 MG TABLET PO SCH (20:54)
[2021-10-24] MEDS: TAMSULOSIN HCL 0.4 MG CAP PO SCH (20:54)
[2021-10-24] MEDS: SENNOSIDES 8.6 MG TABLET PO SCH (20:54)
[2021-10-24] MEDS ORDERED: MUPIROCIN 2% TOPICAL OINTMENT 22 GM NS PRN (21:00)
[2021-10-25 00:09] VITALS: BP_SYST 115
[2021-10-25] MEDS: D5NS 1,000 ML IV SCH (02:54)
[2021-10-25 04:20] VITALS: BP_SYST 135
--- NOTE | 2021-10-25 05:26 | NUR ---
PATIENT REMAINS ASLEEP ON BED. VS STABLE. NO DISTRESS NOTED. BED REMAINS PADDED. NO SEIZURE EPISODE NOTED DURING THE SHIFT. AAOX2. ABLE TO MAKE NEEDS KNOWN. PIV TO RIGHT AC INTACT AND PATENT. IVF INFUSING WELL. NO INFILTRATION NOTED. VOIDING WELL. INCONTINENT X2. NO BM NOTED. TOLERATED PO MEDS WELL, NO VOMITING NOTED. PATIENT STILL NEEDS EEG TO BE DONE. CHARGE NURSE WAS MADE AWARE. ALL NEEDS ATTENDED. CALL LIGHT PLACED WITHIN REACH. MONITORED CLOSELY.
[2021-10-25 06:45] LABS: BASOPHILS % (AUTO) 0.5 % (0.0-2.0); EOSINOPHILS # (AUTO) 0.3 K/uL (0.0-0.4); HEMATOCRIT 36.2 % (36-54); HEMOGLOBIN 12.9 g/dL (14.0-18.0); LYMPHOCYTES # (AUTO) 1.3 K/uL (1.0-5.5); LYMPHOCYTES % (AUTO) 27.7 % (20.5-51.5); MEAN CORPUSCULAR HEMOGLOBIN 32 pg (27-31); MEAN CORPUSCULAR HGB CONC 36 % (32-36); MEAN CORPUSCULAR VOLUME 89 fL (79.0-98.0); MONOCYTES # (AUTO) 0.4 K/uL (0.0-1.0); MONOCYTES % (AUTO) 7.4 % (1.7-9.3); NEUTROPHILS # (AUTO) 2.7 K/uL (1.8-7.7); NEUTROPHILS % (AUTO) 57.4 % (40.0-70.0); PLATELET COUNT (AUTO) 163 K/uL (130-430); RED BLOOD CELL COUNT(AUTO) 4.08 MIL/uL (4.2-6.2); RED CELL DISTRIBUTION WIDTH 14.3 % (9.0-15.0); WHITE BLOOD COUNT (AUTO) 4.8 K/uL (4.8-10.8)
--- NOTE | 2021-10-25 07:20 | NUR ---
rn opening note report was endorsed by night nurse. patient is laying in bed breathing is equal and non labored. patient has all safety and siezure precautions in place. no other needs at this time.
[2021-10-25 07:25] LABS: CALCIUM 7.8 mg/dL (8.4-11.0); CREATININE 0.66 mg/dL (0.55-1.30)
[2021-10-25 08:00] VITALS: BP_SYST 139
--- NOTE | 2021-10-25 09:31 | NUR ---
Discharge Planning: DCP faxed pt referral to [facility]#[phone] DCP to follow up Addendum: 10/25/21 at 1203 by Mela El DP [facility]#[phone] accepted to 201B transport arranged with [facility] [phone] BLS 2:00pm. DCP made CM and nurse aware. Patient packet taken to nurse station.
[2021-10-25] MEDS: ATENOLOL 50 MG TABLET (TENORMIN) PO SCH (09:51)
[2021-10-25] MEDS: QUEtiapine FUMARATE 25 MG TABLET PO SCH (09:51)
[2021-10-25] MEDS: CARBIDOPA/LEVODOPA 25/100 MG TABLET PO SCH ×2 (09:51→13:55)
--- NOTE | 2021-10-25 10:00 | NUR ---
MEDICATION PATIENTS SCHEDULED MEDICATION GIVEN PER ORDER. PATIENT IS AWAKE AND ALERT SITTING UP IN BED EATING HIS BREAKFAST. PATIENT IS SWALLOWING GOOD. SPEAKING CLEAR. NO SIGNS OF ANY DISTRESS AT THIS TIME. EDUCATED TO USE CALL LIGHT FOR ASSISTANCE. CALL LIGHT IS WITH HIM.
[2021-10-25 11:23] VITALS: BP_SYST 151
[2021-10-25 13:14] VITALS: BP_SYST 151
--- NOTE | 2021-10-25 14:05 | NUR ---
discharge patient transferred to [facility]. patient is awake and alert laying in bed. report was called and given to Kait at facility. Got ahold of patients brother and informed on transfer back to [facility]. patient iv catheter removed catheter intact, applied gauze and tape to insertion site. id band removed. report was given to carol with no further questions. patient medication was given to him to take home that he came with no other belongings. no other needs.
== END 2021-10-25 14:05 | DRG 917 ==
LOC: SED 09:13 → STU 12:10
PROVIDERS: ADMIT General Practice; ATTEND General Practice
DX: T50.901A Poisoning by unspecified drugs, medicaments and biological substances, accidental (unintentional), initial encounter (principal); G92.8 Other toxic encephalopathy; N39.0 Urinary tract infection, site not specified; E46 Unspecified protein-calorie malnutrition; E87.1 Hypo-osmolality and hyponatremia; G20 Parkinson's disease; F02.80 Dementia in other diseases classified elsewhere, unspecified severity, without behavioral disturbance, psychotic disturbance, mood disturbance, and anxiety; K59.00 Constipation, unspecified; I10 Essential (primary) hypertension; R13.10 Dysphagia, unspecified; F32.9 Major depressive disorder, single episode, unspecified; F41.9 Anxiety disorder, unspecified; E87.6 Hypokalemia; E83.51 Hypocalcemia; Z68.25 Body mass index [BMI] 25.0-25.9, adult; Y92.89 Other specified places as the place of occurrence of the external cause; Z79.899 Other long term (current) drug therapy
CPT/HCPCS: 36415; 70450-TC; 71045; 76376; 80048; 80053; 80307; 81003; 82550; 83036; 83735; 84484; 85025; 85610-TC; 85730-TC; 87040; 87081; 93005; 95816; 96372; 96374; 96375; 99291; G0378; G0480; G0481; G0482; J1630; J1953; J2060; J3480; J7050